=== PATIENT | female | born 1995 | race Two or more races ===

== ENCOUNTER 2018-04-26 10:50 | Observation (INO) | payer MEDICAID ==
[~2018-04-26] VITALS: Ht 162.6 cm; Wt 91.6 kg
[2018-04-26] MEDS ORDERED: TERBUTALINE SULFATE 1 MG/ML 1ML VIAL SC SCH (11:45)
[2018-04-26] MEDS ORDERED: PREN-96 PO (12:51)
[2018-04-26] MEDS ORDERED: GLY5T PO (12:51)
== END 2018-04-26 13:35 | disposition home or self-care (01) | DRG 566 ==
LOC: LDRP 10:50
PROVIDERS: ADMIT Obstetrics & Gynecology; ATTEND Obstetrics & Gynecology
DX: O24.419 Gestational diabetes mellitus in pregnancy, unspecified control (principal); Z3A.31 31 weeks gestation of pregnancy
CPT/HCPCS: 59025; 76815; 76818; 81002; 82962; 96372; G0378; J3105

== ENCOUNTER 2018-04-28 19:58 | Observation (INO) | payer MEDICAID ==
[~2018-04-28 19:58] MED LIST: GLY5T PO; PREN-96 PO
[2018-04-28 22:08] LABS: Urine Bacteria MANY /hpf (None Seen); Urine Blood Negative /uL (Negative); Urine Specific Gravity 1.005 (1.001-1.035); Urine WBC 16 /hpf (0 - 5)
== END 2018-04-28 22:51 | disposition home or self-care (01) | DRG 563 ==
LOC: LDRP 19:58
PROVIDERS: ADMIT Obstetrics & Gynecology; ATTEND Obstetrics & Gynecology
DX: O60.03 Preterm labor without delivery, third trimester (principal); O23.33 Infections of other parts of urinary tract in pregnancy, third trimester; O62.9 Abnormality of forces of labor, unspecified; O24.419 Gestational diabetes mellitus in pregnancy, unspecified control; Z3A.32 32 weeks gestation of pregnancy
CPT/HCPCS: 59025; 76815; 81001; 81002; 82962; 87070; 87086; 87210; A6257; G0378; 96365; 96366

== ENCOUNTER 2018-05-03 10:15 | Observation (INO) | payer MEDICAID ==
[2018-05-03] MEDS ORDERED: LACTATED RINGER'S 1,000 ML IV ONE (11:40)
== END 2018-05-03 14:30 | disposition home or self-care (01) | DRG 566 ==
LOC: LDRP 10:15
PROVIDERS: ADMIT Obstetrics & Gynecology; ATTEND Obstetrics & Gynecology
DX: O24.419 Gestational diabetes mellitus in pregnancy, unspecified control (principal); Z3A.32 32 weeks gestation of pregnancy
CPT/HCPCS: 59025; 76818; 81002; 82962; G0378

== ENCOUNTER 2018-05-05 20:17 | Observation (INO) | payer MEDICAID | END 2018-05-05 21:58 | disposition home or self-care (01) | DRG 566 | LOC: LDRP 20:17 | PROVIDERS: ADMIT Specialist; ATTEND Specialist | DX: O24.419 Gestational diabetes mellitus in pregnancy, unspecified control (principal); Z3A.33 33 weeks gestation of pregnancy | CPT/HCPCS: 59025; 76818; 81002; 82948; 82962; G0378 ==

== ENCOUNTER 2018-05-09 19:17 | Observation (INO) | payer MEDICAID | END 2018-05-09 20:28 | disposition home or self-care (01) | DRG 566 | LOC: LDRP 19:17 | PROVIDERS: ADMIT Specialist; ATTEND Specialist | DX: O24.419 Gestational diabetes mellitus in pregnancy, unspecified control (principal); O99.89 Other specified diseases and conditions complicating pregnancy, childbirth and the puerperium; M54.9 Dorsalgia, unspecified; Z3A.33 33 weeks gestation of pregnancy | CPT/HCPCS: 59025; 81002; 82948; 82962; G0378 ==

== ENCOUNTER 2018-05-13 19:30 | Observation (INO) | payer MEDICAID | END 2018-05-13 21:13 | disposition home or self-care (01) | DRG 566 | LOC: LDRP 19:30 | PROVIDERS: ADMIT Obstetrics & Gynecology; ATTEND Obstetrics & Gynecology | DX: O26.893 Other specified pregnancy related conditions, third trimester (principal); N89.8 Other specified noninflammatory disorders of vagina; Z3A.34 34 weeks gestation of pregnancy | CPT/HCPCS: 59025; 76818; 81002; 82948; G0378 ==

== ENCOUNTER 2018-05-17 10:20 | Observation (INO) | payer MEDICAID ==
[~2018-05-17] VITALS: Ht 162.6 cm; Wt 93.0 kg
== END 2018-05-17 13:05 | disposition home or self-care (01) | DRG 566 ==
LOC: LDRP 10:20
PROVIDERS: ADMIT Obstetrics & Gynecology; ATTEND Obstetrics & Gynecology
DX: O24.419 Gestational diabetes mellitus in pregnancy, unspecified control (principal); O26.893 Other specified pregnancy related conditions, third trimester; M54.9 Dorsalgia, unspecified; O99.89 Other specified diseases and conditions complicating pregnancy, childbirth and the puerperium; N89.8 Other specified noninflammatory disorders of vagina; Z3A.34 34 weeks gestation of pregnancy
CPT/HCPCS: 59025; 76818; 81002; G0378

== ENCOUNTER 2018-05-20 12:24 | Observation (INO) | payer MEDICAID | END 2018-05-20 15:20 | disposition home or self-care (01) | DRG 566 | LOC: LDRP 14:07 | PROVIDERS: ADMIT Obstetrics & Gynecology; ATTEND Obstetrics & Gynecology | DX: O24.419 Gestational diabetes mellitus in pregnancy, unspecified control (principal); Z3A.35 35 weeks gestation of pregnancy | CPT/HCPCS: 59025; 76818; 81002; 82948; 82962; G0378 ==

== ENCOUNTER 2018-05-24 14:58 | Observation (INO) | payer MEDICAID | END 2018-05-24 16:05 | disposition home or self-care (01) | DRG 566 | LOC: LDRP 14:58 | PROVIDERS: ADMIT Obstetrics & Gynecology; ATTEND Obstetrics & Gynecology | DX: O24.419 Gestational diabetes mellitus in pregnancy, unspecified control (principal); Z3A.35 35 weeks gestation of pregnancy | CPT/HCPCS: 59025; 76818; 81002; G0378 ==

== ENCOUNTER 2018-05-27 11:00 | Observation (INO) | payer MEDICAID | END 2018-05-27 12:05 | disposition home or self-care (01) | DRG 566 | LOC: LDRP 11:00 | PROVIDERS: ADMIT Obstetrics & Gynecology; ATTEND Obstetrics & Gynecology | DX: O24.419 Gestational diabetes mellitus in pregnancy, unspecified control (principal); O62.9 Abnormality of forces of labor, unspecified; Z3A.36 36 weeks gestation of pregnancy | CPT/HCPCS: 59025; 81002; 82948; 82962; G0378 ==

== ENCOUNTER 2018-05-30 18:45 | Observation (INO) | payer MEDICAID ==
[~2018-05-30] VITALS: Ht 160 cm; Wt 94.3 kg
[2018-05-30 19:35] LABS: Urine Bacteria MANY /hpf (None Seen); Urine Blood Negative /uL (Negative); Urine Specific Gravity 1.002 (1.001-1.035); Urine WBC 24 /hpf (0 - 5)
[2018-05-30] MEDS ORDERED: TERBUTALINE SULFATE 1 MG/ML 1ML VIAL SC ONE (20:10)
[2018-05-30] MEDS ORDERED: TERBUTALINE SULFATE 1 MG/ML 1ML VIAL SC SCH (20:15)
== END 2018-05-30 21:10 | disposition home or self-care (01) | DRG 563 ==
LOC: LDRP 18:45
PROVIDERS: ADMIT Specialist; ATTEND Specialist
DX: O60.03 Preterm labor without delivery, third trimester (principal); O24.419 Gestational diabetes mellitus in pregnancy, unspecified control; N89.8 Other specified noninflammatory disorders of vagina; O26.893 Other specified pregnancy related conditions, third trimester; Z3A.36 36 weeks gestation of pregnancy
CPT/HCPCS: 59025; 76818; 81001; 82948; 82962; G0378; J3105; 96372

== ENCOUNTER 2018-06-03 15:00 | Observation (INO) | payer MEDICAID | END 2018-06-03 20:52 | disposition home or self-care (01) | DRG 566 | LOC: LDRP 19:33 | PROVIDERS: ADMIT Obstetrics & Gynecology; ATTEND Obstetrics & Gynecology | DX: O24.419 Gestational diabetes mellitus in pregnancy, unspecified control (principal); O26.893 Other specified pregnancy related conditions, third trimester; N89.8 Other specified noninflammatory disorders of vagina; O62.9 Abnormality of forces of labor, unspecified; Z3A.37 37 weeks gestation of pregnancy | CPT/HCPCS: 76818; 82962; G0378; 59025; 81002 ==

== ENCOUNTER 2018-06-07 09:35 | Observation (INO) | payer MEDICAID | END 2018-06-07 11:20 | disposition home health service (06) | DRG 566 | LOC: LDRP 09:35 | PROVIDERS: ADMIT Specialist; ATTEND Specialist | DX: O24.419 Gestational diabetes mellitus in pregnancy, unspecified control (principal); O26.893 Other specified pregnancy related conditions, third trimester; R10.30 Lower abdominal pain, unspecified; Z3A.37 37 weeks gestation of pregnancy | CPT/HCPCS: 59025; 76818; 81002; 82962; G0378 ==

== ENCOUNTER 2018-06-10 10:15 | Observation (INO) | payer MEDICAID ==
[2018-06-10 11:59] LABS: Basophils # (auto) 0 uL; Basophils % (auto) 0.2 % (0.0-2.0); Eosinophils # (auto) 0.1 uL; Eosinophils % (auto) 0.9 % (0.0-7.0); Hematocrit 31.8 % (36.0-46.0); Lymphocytes # (auto) 2.6 uL; Lymphocytes % (auto) 23.8 % (10.0-50.0); Mean Corpuscular Hemoglobin 32.4 pg (28.0-32.0); Mean Corpuscular Hgb Conc. 34.6 g/dL (32.0-36.0); Mean Corpuscular Volume 93.5 fL (80.0-100.0); Monocytes # (auto) 0.9 uL; Monocytes % (auto) 8.2 % (0.0-12.0); Neutrophils # (auto) 7.3 uL; Neutrophils % (auto) 66.9 % (37.0-80.0); Platelet Count (auto) 184 10^3/uL (140-450); Red Cell Distribution Width 13.7 % (11.8-14.3); White Blood Cell 10.9 10^3/uL (4.4-10.8)
[2018-06-10 12:12] LABS: INR 0.9 (0.9-1.15); Partial Thromboplastin Time 26.8 sec (23.78-33.04); Prothrombin Time 9.7 sec (9.27-12.13)
[2018-06-10 12:14] LABS: Urine Bacteria MANY /hpf (None Seen); Urine Blood Negative /uL (Negative); Urine Specific Gravity 1.003 (1.001-1.035); Urine WBC 26 /hpf (0 - 5)
[2018-06-10 12:14] LABS: Albumin 2.3 g/dL (3.4-5.0); Calcium 8.6 mg/dL (8.5-10.1); Potassium 3.9 mmol/L (3.5-5.1)
[2018-06-10 12:17] LABS: BUN/Creatinine Ratio 15.1
[2018-06-10 12:19] LABS: Bilirubin, Total 0.1 mg/dL (0.2-1.0); Total Protein 6.6 g/dL (6.4-8.2)
[2018-06-11 12:06] LABS: Rubella Antibodies, IgG 4.07 index (Immune >0.99)
== END 2018-06-10 14:20 | disposition home or self-care (01) | DRG 566 ==
LOC: LDRP 10:15
PROVIDERS: ADMIT Obstetrics & Gynecology; ATTEND Obstetrics & Gynecology
DX: O24.419 Gestational diabetes mellitus in pregnancy, unspecified control (principal); O62.9 Abnormality of forces of labor, unspecified; Z3A.38 38 weeks gestation of pregnancy
CPT/HCPCS: 36415; 59025; 76805; 76818; 80053; 81001; 81002; 82948; 82962; 83036; 85025; 85610; 85730; 86762; 86850; 86900; 86901; G0378

== ENCOUNTER 2018-06-14 21:42 | Inpatient (IN) | payer MEDICAID ==
[~2018-06-14] VITALS: Ht 165.1 cm; Wt 90.7 kg
[2018-06-14] MEDS ORDERED: LACTATED RINGER'S 1,000 ML IV SCH (21:51)
[2018-06-14] MEDS ORDERED: WITCH HAZEL-GLYCERIN PAD TOP PRN (22:00)
[2018-06-14] MEDS ORDERED: BUTORPHANOL TARTRATE 2 MG/1 ML VIAL IV PRN (22:00)
[2018-06-14] MEDS ORDERED: LIDOCAINE 2% (LOCAL ANESTH.) PF 5ml SDV ID ONE (22:00)
[2018-06-14] MEDS: ACCU-CHEK COMFORT CURVE STRIP VI SCH (22:00)
[2018-06-14] MEDS ORDERED: METHYLERGONOVINE MALEATE 0.2 MG/ML AMP IM PRN (22:00)
[2018-06-14] MEDS ORDERED: PHISODERM TOP SOLN 240ML BTL TOP PRN (22:00)
[2018-06-14] MEDS ORDERED: DERMOPLAST 60ML BOTTLE TOP PRN (22:00)
[2018-06-14 22:45] LABS: Alcohol, Urine < 3.0 mg/dL (0-5); Amphetamine Screen, Urine NEGATIVE (NEGATIVE); Barbiturate Scree,Urine NEGATIVE (NEGATIVE); Benzodiazephine Screen, Urine NEGATIVE (NEGATIVE); Cannabinoid Screen, Urine NEGATIVE (NEGATIVE); Cocaine Screen, Urine NEGATIVE (NEGATIVE); Opiate Scree,Urine NEGATIVE (NEGATIVE); Phencyclidine Screen, Urine NEGATIVE (NEGATIVE)
[2018-06-14 22:46] LABS: Urine Bacteria MANY /hpf (None Seen); Urine Blood Negative /uL (Negative); Urine Specific Gravity 1.005 (1.001-1.035); Urine WBC 215 /hpf (0 - 5)
[2018-06-14 22:47] LABS: Basophils # (auto) 0 uL; Basophils % (auto) 0.2 % (0.0-2.0); Eosinophils # (auto) 0.1 uL; Hematocrit 34.1 % (36.0-46.0); Hemoglobin 11.5 g/dL (12.2-16.2); Lymphocytes # (auto) 2.7 uL; Lymphocytes % (auto) 25.5 % (10.0-50.0); Mean Corpuscular Hemoglobin 31.8 pg (28.0-32.0); Mean Corpuscular Hgb Conc. 33.7 g/dL (32.0-36.0); Mean Corpuscular Volume 94.3 fL (80.0-100.0); Monocytes # (auto) 0.9 uL; Monocytes % (auto) 8.7 % (0.0-12.0); Neutrophils # (auto) 6.7 uL; Neutrophils % (auto) 64.6 % (37.0-80.0); Platelet Count (auto) 225 10^3/uL (140-450); Red Blood Cells 3.61 10^6/uL (4.0-5.20); Red Cell Distribution Width 13.8 % (11.8-14.3); White Blood Cell 10.4 10^3/uL (4.4-10.8)
[2018-06-14 23:04] LABS: Albumin 2.5 g/dL (3.4-5.0); Calcium 9.1 mg/dL (8.5-10.1); Potassium 3.9 mmol/L (3.5-5.1)
[2018-06-14 23:08] LABS: BUN/Creatinine Ratio 13.4; Bilirubin, Total 0.1 mg/dL (0.2-1.0); INR 0.9 (0.9-1.15); Partial Thromboplastin Time 27.1 sec (23.78-33.04); Prothrombin Time 9.7 sec (9.27-12.13); Total Protein 7.5 g/dL (6.4-8.2)
[2018-06-15] MEDS: ACCU-CHEK COMFORT CURVE STRIP VI SCH ×2 (02:30→05:35)
[2018-06-15] MEDS ORDERED: D5W/LACTATED RINGERS 1,000 ML IV SCH (14:30)
[2018-06-15] MEDS ORDERED: LACT. RINGERS/OXYTOCIN 20UNITS 1,000 ML IV SCH (15:41)
[2018-06-15] MEDS ORDERED: TERBUTALINE SULFATE 1 MG/ML 1ML VIAL SC ONE (15:45)
[2018-06-15] MEDS ORDERED: LIDOCAINE 2%HCL (LOCAL ANESTH.) INJ 20ML MDV ONE (15:57)
[2018-06-16 06:06] LABS: RPR Non Reactive (Non Reactive)
[2018-06-16] MEDS ORDERED: fentaNYL CITRATE 100 MCG/2 ML VL IV ONE (08:30)
[2018-06-16] MEDS ORDERED: LIDOCAINE HCL 2 %PF INJ 10ML AMP IJ ONE (08:30)
[2018-06-16] MEDS ORDERED: NALOXONE HCL 0.4 MG/ML VIAL IV ONE ×2 (08:30→10:00)
[2018-06-16] MEDS ORDERED: fentaNYL W ROPIVACAINE 150 ML EPI SCH ×2 (08:30→10:00)
[2018-06-16] MEDS ORDERED: ePHEDrine SULFATE 50 MG/ML AMP IV ONE ×2 (08:30→10:00)
[2018-06-16] MEDS ORDERED: SODIUM CHLORIDE 0.9% 500 ML IV PRN (09:51)
[2018-06-16] MEDS ORDERED: DIPHENOXYLATE W/ATROPINE 2.5 MG TAB ONE (21:26)
[2018-06-16] MEDS ORDERED: CARBOPROST TROMETHAMINE 250 MCG/1ML VIAL IM ONE ×2 (21:27→21:35)
[2018-06-16] MEDS ORDERED: ONDANSETRON HCL 4 MG/2 ML VIAL ONE (21:39)
[2018-06-16 22:08] LABS: Basophils # (auto) 0 uL; Basophils % (auto) 0.3 % (0.0-2.0); Eosinophils # (auto) 0 uL; Hematocrit 34.1 % (36.0-46.0); Hemoglobin 11.4 g/dL (12.2-16.2); Lymphocytes % (auto) 5.9 % (10.0-50.0); Mean Corpuscular Hgb Conc. 33.6 g/dL (32.0-36.0); Mean Corpuscular Volume 95.1 fL (80.0-100.0); Monocytes # (auto) 1.1 uL; Monocytes % (auto) 6.5 % (0.0-12.0); Neutrophils # (auto) 15.1 uL; Neutrophils % (auto) 87.3 % (37.0-80.0); Nucleated Red Blood Cells % 0.1 %; Platelet Count (auto) 188 10^3/uL (140-450); Red Blood Cells 3.58 10^6/uL (4.0-5.20); Red Cell Distribution Width 13.8 % (11.8-14.3); White Blood Cell 17.3 10^3/uL (4.4-10.8)
[2018-06-16] MEDS: ceFAZolin 1GM/50ML 50 ML IV SCH (22:31)
[2018-06-16] MEDS: ACETAMINOPHEN 325 MG TAB PO PRN (22:50)
--- NOTE | 2018-06-16 23:00 | NUR ---
Ambulation: Patient OOB with standby assistance by RN. Patient ambulated to bathroom with steady gait. Patient able to void without difficulty. [facility] teaching provided with returned demonstration by patient. Patient requests to shower at this time. Clean gown provided and bed linen changed. Patient ambulated back to bed with steady gait and no distress noted. Addendum: 06/17/18 at 0020 by Emily Lebron RN DISREGARD NOTE. WRONG PATIENT.
--- NOTE | 2018-06-17 01:40 | NUR ---
Ambulation: Bolden catheter DCd using aseptic technique, patient tolerated well. Patient OOB with standby assistance by RN. Patient ambulated to bathroom with steady gait. Patient able to void without difficulty, 100mL clear yellow urine. [facility] teaching provided with returned demonstration by patient. Clean gown provided and bed linen changed. Patient ambulated back to bed with steady gait and no distress noted.
[2018-06-17] MEDS: IBUPROFEN 600 MG TAB PO PRN ×4 (02:40→21:26)
[2018-06-17 03:00] VITALS: BP 107/57
[2018-06-17] MEDS: ceFAZolin 1GM/50ML 50 ML IV SCH ×3 (05:45→22:45)
[2018-06-17] MEDS: ACETAMINOPHEN 325 MG TAB PO PRN ×2 (07:01→15:52)
[2018-06-17 07:02] VITALS: BP 99/55
[2018-06-17 07:22] LABS: Basophils # (auto) 0 uL; Basophils % (auto) 0.2 % (0.0-2.0); Eosinophils # (auto) 0 uL; Hematocrit 26.6 % (36.0-46.0); Hemoglobin 9.2 g/dL (12.2-16.2); Lymphocytes # (auto) 2.3 uL; Mean Corpuscular Hemoglobin 32.3 pg (28.0-32.0); Mean Corpuscular Hgb Conc. 34.4 g/dL (32.0-36.0); Monocytes # (auto) 1.6 uL; Monocytes % (auto) 8.5 % (0.0-12.0); Neutrophils # (auto) 15.3 uL; Neutrophils % (auto) 79.3 % (37.0-80.0); Nucleated Red Blood Cells % 0.1 %; Platelet Count (auto) 170 10^3/uL (140-450); Red Blood Cells 2.83 10^6/uL (4.0-5.20); Red Cell Distribution Width 13.7 % (11.8-14.3); White Blood Cell 19.3 10^3/uL (4.4-10.8)
[2018-06-17] MEDS ORDERED: TETANUS-DIPTH-ACEL PERTUSSIS 0.5ML SYRG IM ONE (07:45)
[2018-06-17] MEDS ORDERED: DOCUSATE CALCIUM 240 MG CAP PO SCH (10:00)
[2018-06-17 10:50] VITALS: BP 98/61
[2018-06-17 15:00] VITALS: BP 100/53
[2018-06-17] MEDS ORDERED: RHO (D) IMMUNE GLOBULIN 300 MCG INJ IM ONE (15:15)
[2018-06-17 19:00] VITALS: BP 99/66
--- NOTE | 2018-06-17 19:00 | NUR ---
DISCHARGE INSTRUCTIONS GIVEN TO PT IN [place], PT VERBALIZES UNDERSTANDING, SISTER OF PT AT BEDSIDE REINFORCED DISCHARGE INSTRUCTIONS.
[2018-06-17 23:00] VITALS: BP 104/61
[2018-06-18] MEDS: ACETAMINOPHEN 325 MG TAB PO PRN (02:10)
[2018-06-18 03:10] VITALS: BP 94/48
[2018-06-18] MEDS: ceFAZolin 1GM/50ML 50 ML IV SCH (05:56)
[2018-06-18 06:30] VITALS: BP 109/55
[2018-06-18] MEDS: IBUPROFEN 600 MG TAB PO PRN (06:53)
--- NOTE | 2018-06-18 09:38 | NUR ---
Preparing for discharge, mother has no questions or concerns at this time.
--- NOTE | 2018-06-18 10:01 | NUR ---
IV removal IV DC'd with sterile technique, catheter fully intact. Pressure dressing applied to site. Patient tolerated procedure well. NOTE:
--- NOTE | 2018-06-18 10:15 | NUR ---
Pt encouraged to follow up with [facility]CE[facility] as instructed. All questions and concerns addressed. Patient verbalized understanding. Medication reconciliation completed and copy given to patient. All required/requested vaccines given and copies of vaccinations given to patient. Discharge teaching was completed by Vishal Callahan.
--- NOTE | 2018-06-18 10:20 | NUR ---
Discharge: Patient taken to vehicle via wheelchair with all personal belongings, accompanied by staff and family member. No distress noted at time of departure, no adverse changes in status since initial assessment. Encouraged to call with any questions or concerns.
[2018-06-18 10:26] VITALS: BP 109/55
== END 2018-06-18 10:20 | disposition home or self-care (01) | DRG 560 ==
LOC: OBSVTOIN 21:42 → LDRP 21:42
PROVIDERS: ADMIT Obstetrics & Gynecology; ATTEND Obstetrics & Gynecology
PROC: 10E0XZZ Delivery of Products of Conception, External Approach (ICD-10-PCS; principal; 2018-06-14)
PROC: 0W8NXZZ Division of Female Perineum, External Approach (ICD-10-PCS; 2018-06-14)
PROC: 0KQM0ZZ Repair Perineum Muscle, Open Approach (ICD-10-PCS; 2018-06-14)
DX: O24.420 Gestational diabetes mellitus in childbirth, diet controlled (principal); O69.81X0 Labor and delivery complicated by cord around neck, without compression, not applicable or unspecified; Z37.0 Single live birth; Z3A.39 39 weeks gestation of pregnancy
CPT/HCPCS: 36415; 51702; 59025; 59409; 62282; 80053; 80307; 81001; 82948; 82962; 85025; 85610; 85730; 86592; 86850; 86870; 86900; 86901; 90384; 90715; 96361; 96365; 96366; 96372; 96374; A6257; G0378; J0690; J2405; J2590; J3010; J7060

== ENCOUNTER 2023-10-09 10:11 | Observation (INO) | payer MEDICAID ==
[~2023-10-09 10:11] MED LIST changes: -GLY5T PO; +GLYB5TAB9 PO
== END 2023-10-09 12:39 | disposition home or self-care (01) ==
LOC: LDRP 10:11 → UNDOADMOB 10:11 → LDRP 10:46
PROVIDERS: ADMIT Obstetrics & Gynecology; ATTEND Obstetrics & Gynecology
DX: O24.419 Gestational diabetes mellitus in pregnancy, unspecified control (principal); O40.3XX0 Polyhydramnios, third trimester, not applicable or unspecified; O26.893 Other specified pregnancy related conditions, third trimester; N89.8 Other specified noninflammatory disorders of vagina; Z3A.38 38 weeks gestation of pregnancy
CPT/HCPCS: 59025; 76818; 81002; 82948; 82962; G0378

== ENCOUNTER 2023-10-13 09:08 | Observation (INO) | payer MEDICAID ==
[2023-10-13] MEDS ORDERED: METF-370 PO (10:33)
== END 2023-10-13 11:10 | disposition home or self-care (01) ==
LOC: LDRP 09:08
PROVIDERS: ADMIT Obstetrics & Gynecology; ATTEND Obstetrics & Gynecology
DX: O24.419 Gestational diabetes mellitus in pregnancy, unspecified control (principal); O40.3XX0 Polyhydramnios, third trimester, not applicable or unspecified; Z3A.39 39 weeks gestation of pregnancy; Z79.84 Long term (current) use of oral hypoglycemic drugs
CPT/HCPCS: 59025; 76818; 81002; 82962; 94760; G0378